=== PATIENT | female | born 1970 | race Caucasian/White ===

== ENCOUNTER → 2016-10-17 | Outpatient (CLI) | payer BC ==
--- NOTE | 2016-10-17 09:28 | KCIC ---
MRI right knee without contrast dated 10/17/2016 8:45 AM Indication: Right knee pain , injury 1.5 years ago pain lateral aspect swelling Comparison: No comparison is available. Technique: Routine multiplanar multisequence imaging performed. No contrast administered. Findings: Mild tricompartmental hypertrophic change with small marginal osteophytes. Thinning and surface irregularity of the articular cartilage throughout. There is full-thickness cartilage fissuring at the patellar apex/lateral facet. There is also full-thickness cartilage fissuring at the lateral femoral trochlea and trochlear groove. Small focus of full-thickness cartilage loss over the posterior and central medial femoral condyle. Near full-thickness cartilage loss at the weightbearing surface lateral femoral condyle. Small joint effusion. No significant popliteal cyst. Suspected small loose body at the anterior joint space measuring 2 to 3 mm in size. Anterior cruciate and posterior cruciate ligaments are intact. Medial and lateral collateral complexes are intact. Iliotibial band, popliteus tendon and pes anserine complex within normal limits. Quadriceps and patellar tendon are intact. No abnormality of the medial or lateral retinaculum. There is ill-definition of the peripheral aspect of the anterior horn lateral meniscus with some increased signal along the meniscal margin. Possible small linear defect extending to the femoral articular surface. Posterior horn and body are intact. Minimal blunting of the medial meniscal root. The medial meniscus is otherwise normal in morphology and signal. IMPRESSION: 1. Mild tricompartmental degenerative arthrosis and chondromalacia. There is full-thickness cartilage loss at the anterior compartment with small areas of near full-thickness cartilage loss at the medial and lateral compartment. 2. Small complex tear of the anterior horn lateral meniscus near the peripheral red-red zone. There may be a small articular surface component near the intercondylar attachment. 3. Small joint effusion. 4. Intact cruciate and collateral ligaments. Electronically signed by: Jamie Adam MD (10/17/2016 9:25 AM) [id number]
== END | disposition home or self-care (01) ==
LOC: KCIC MRI 08:40
PROVIDERS: ATTEND Orthopaedic Surgery
DX: M17.11 Unilateral primary osteoarthritis, right knee (principal); M25.461 Effusion, right knee
CPT/HCPCS: 73721